=== PATIENT | female | born 1975 | race Caucasian/White ===

== ENCOUNTER 2021-09-01 00:44 | Observation (INO) ==
[2021-09-01] MEDS ORDERED: Isovue-370 500 ML BOTTLE IVP ONE (01:18)
[2021-09-01] MEDS ORDERED: Ondansetron 4 MG/2 ML VIAL IVP ONE (01:19)
[2021-09-01] MEDS ORDERED: Morphine Sulfate 2 MG/ML SYRINGE IVP ONE (01:19)
[2021-09-01 01:27] LABS: Basophils # 0.1 K/mcL (0.0-0.2); Basophils % 0.4 %; Eosinophils # 0.2 K/mcL (0.0-0.6); Eosinophils % 1.2 %; Hematocrit 44.5 % (35.3-44.9); Hemoglobin 13.9 g/dL (11.5-15.4); Lymphocytes # 6.1 K/mcL (0.6-4.6); Lymphocytes % 34.6 %; Mean Corpuscular HGB Conc 31.2 g/dL (31.6-35.5); Mean Corpuscular Hemoglobin 27.3 pg (28.0-33.3); Mean Corpuscular Volume 87.3 fL (83.0-100.0); Mean Platelet Volume 10.2 fL (9.4-12.4); Monocytes # 1.2 K/mcL (0.0-1.3); Monocytes % 6.9 %; Platelet Count 323 K/mcL (140-400); Red Cell Distribution Width 15.2 % (11.5-14.5); Segmented Neutrophils % 55.9 %; White Blood Count 17.6 K/mcL (4.3-11.1)
[2021-09-01 01:30] LABS: Neutrophils # 9.8 K/mcL (1.6-8.9)
[2021-09-01] MEDS ORDERED: *HR* HYDROmorphone (PF) 1 MG/ML SYRINGE IVP ONE (01:41)
[2021-09-01 01:47] LABS: Alanine Aminotransferase 20 Units/L (7-52); Albumin 3.8 g/dL (3.5-5.7); Albumin/Globulin Ratio 1.4 (1.1-2.2); Alkaline Phosphatase 61 Units/L (34-104); Aspartate Amino Transferase 11 Units/L (13-39); BUN/Creatinine Ratio 28 (6-26); Bilirubin,Direct 0.1 mg/dL (0.0-0.2); Bilirubin,Indirect 0.3 mg/dL (0.0-1.0); Bilirubin,Total 0.4 mg/dL (0.3-1.0); Blood Urea Nitrogen 22 mg/dL (6-20); Calcium 8.5 mg/dL (8.6-10.3); Carbon Dioxide 25 mEq/L (23-29); Chloride 104 mEq/L (98-107); Globulin 2.8 g/dL (2.4-3.5); Glucose 106 mg/dL (70-105); Lipase 23 Units/L (11-82); Osmolality,Calculated 292 (280-300); Sodium 139 mEq/L (136-145); Total Protein 6.6 g/dL (6.4-8.9); eGFR For African Americans > 60 (> 60); eGFR For Non-African Americans > 60 (> 60)
[2021-09-01 01:50] LABS: Bacteria,Urine Few per hpf (None-Few); Bilirubin,Urine Negative (Negative); Blood,Urine Moderate (Negative); Clarity,Urine Turbid (Clear); Color,Urine Yellow (Yellow); Glucose,Urine (UA) Normal (Normal); Ketones,Urine Negative (Negative); Leukocyte Esterase,Urine Large (Negative); Mucus,Urine Few per lpf (None-Few); Nitrite,Urine Negative (Negative); Protein,Urine 50 mg/dL (Neg-Trace); RBC,Urine 50-100 per hpf (0-3); Specific Gravity,Urine > 1.030 (1.010-1.025); Squamous Epithelial Cell,Urine Many per hpf (None-Few); Transitional Epi Cells,Urine Few per hpf (None-Few); WBC,Urine TNTC per hpf (0-3)
[2021-09-01] MEDS ORDERED: levoFLOXacin 750 MG/150 ML 750 MG/150 ML BAG IVPB ONE (02:01)
[2021-09-01] MEDS ORDERED: *HR* HYDROmorphone (PF) 1 MG/ML SYRINGE IVP PRN ×3 (02:23→16:13)
[2021-09-01] MEDS ORDERED: 0.9 % Sodium Chloride 1,000 ML IVC ONE (03:00)
[2021-09-01] MEDS ORDERED: Ketorolac 30 MG/ML VIAL IVP ONE (03:00)
[2021-09-01] MEDS ORDERED: Ondansetron 4 MG/2 ML VIAL IVP PRN ×3 (04:24→16:13)
[2021-09-01] MEDS ORDERED: Naloxone 0.4 MG/ML INJ IVP PRN ×2 (04:24→16:13)
[2021-09-01] MEDS ORDERED: Melatonin 3 MG TABLET PO PRN ×2 (04:24→16:13)
[2021-09-01] MEDS ORDERED: Ketorolac 30 MG/ML VIAL IVP PRN (04:44)
[2021-09-01] MEDS: 0.9 % Sodium Chloride 1,000 ML IVC SCH ×2 (06:00→11:40)
[2021-09-01] MEDS ORDERED: cefTRIAXone 1,000 MG in 0.9 % Sodium Chloride Mini Bag 100 ML IVPB SCH (09:00)
[2021-09-01 09:06] LABS: Hematocrit 42.9 % (35.3-44.9); Hemoglobin 13.4 g/dL (11.5-15.4); Mean Corpuscular HGB Conc 31.2 g/dL (31.6-35.5); Mean Corpuscular Hemoglobin 27.9 pg (28.0-33.3); Mean Corpuscular Volume 89.4 fL (83.0-100.0); Mean Platelet Volume 10.2 fL (9.4-12.4); Platelet Count 283 K/mcL (140-400); Red Cell Distribution Width 15.3 % (11.5-14.5); White Blood Count 17.7 K/mcL (4.3-11.1)
[2021-09-01 09:23] LABS: BUN/Creatinine Ratio 29 (6-26); Blood Urea Nitrogen 22 mg/dL (6-20); Calcium 8.5 mg/dL (8.6-10.3); Carbon Dioxide 29 mEq/L (23-29); Chloride 103 mEq/L (98-107); Glucose 96 mg/dL (70-105); Osmolality,Calculated 289 (280-300); Potassium 4.3 mEq/L (3.5-5.1); Sodium 138 mEq/L (136-145); eGFR For African Americans > 60 (> 60); eGFR For Non-African Americans > 60 (> 60)
[2021-09-01] MEDS ORDERED: Promethazine 6.25 MG in Water for inj. (sterile) 20 ML IVPB PRN (13:14)
[2021-09-01] MEDS ORDERED: *HR* OxyCODONE Immed Rel 5 MG TABLET PO PRN (13:14)
[2021-09-01] MEDS ORDERED: *HR* HYDROmorphone PF 0.5 MG/0.5 ML SYRINGE IVP PRN (13:14)
[2021-09-01] MEDS ORDERED: *HR* Propofol 200 MG/20 ML VIAL IVP ONE (13:24)
[2021-09-01] MEDS ORDERED: *HR* FentaNYL (PF) 100 MCG/2 ML VIAL ONE (13:24)
[2021-09-01] MEDS ORDERED: Lidocaine -MPF 4% 5 ML AMPUL ONE (13:24)
[2021-09-01] MEDS ORDERED: Lidocaine -MPF 2% 5 ML VIAL ONE (13:24)
[2021-09-01] MEDS ORDERED: Ondansetron 4 MG/2 ML VIAL ONE (13:24)
[2021-09-01] MEDS ORDERED: *HR* Succinylcholine 200 MG/10 ML VIAL IVP ONE (13:24)
[2021-09-01] MEDS ORDERED: Isovue-300 50ML VIAL ONE (13:28)
[2021-09-01] MEDS ORDERED: Albuterol 2.5 MG/3 ML NEBULIZER IH STA (13:42)
[2021-09-01] MEDS ORDERED: 0.9 % Sodium Chloride 1,000 ML IVC SCH (16:13)
[2021-09-01] MEDS ORDERED: *HR* Belladonna Alkaloids/Opium 30 MG RECTAL SUPPOSITORY RC PRN (16:13)
[2021-09-01] MEDS: Ketorolac 30 MG/ML VIAL IVP PRN (18:08)
[2021-09-02 03:15] LABS: Hemoglobin 12.9 g/dL (11.5-15.4); Mean Corpuscular HGB Conc 31.5 g/dL (31.6-35.5); Mean Corpuscular Hemoglobin 28.1 pg (28.0-33.3); Mean Corpuscular Volume 89.3 fL (83.0-100.0); Mean Platelet Volume 10.6 fL (9.4-12.4); Platelet Count 286 K/mcL (140-400); Red Blood Count 4.59 M/mcL (3.82-4.97); Red Cell Distribution Width 15.4 % (11.5-14.5); White Blood Count 12.9 K/mcL (4.3-11.1)
[2021-09-02 03:39] LABS: BUN/Creatinine Ratio 34 (6-26); Blood Urea Nitrogen 22 mg/dL (6-20); Calcium 8.6 mg/dL (8.6-10.3); Carbon Dioxide 23 mEq/L (23-29); Chloride 107 mEq/L (98-107); Glucose 128 mg/dL (70-105); Osmolality,Calculated 289 (280-300); Potassium 4.4 mEq/L (3.5-5.1); Sodium 137 mEq/L (136-145); eGFR For African Americans > 60 (> 60); eGFR For Non-African Americans > 60 (> 60)
[2021-09-02] MEDS ORDERED: cefTRIAXone 1,000 MG in 0.9 % Sodium Chloride Mini Bag 100 ML IVPB SCH (09:00)
[2021-09-02] MEDS: Ketorolac 30 MG/ML VIAL IVP PRN (11:25)
[2021-09-02 15:19] VITALS: BP 123/83; PULSE 69; TEMP 98.1; O2SAT 95
== END 2021-09-02 16:00 | disposition home or self-care (01) ==
LOC: 3ANU 00:44 → EMEROOARM 00:44 → SUATTDRO 03:33 → 3ANU 04:16
PROVIDERS: ADMIT Internal Medicine; ATTEND Registered Nurse